=== PATIENT | male | born 1940 | race Two or more races ===

== ENCOUNTER 2017-10-24 13:36 | Emergency (ER) | payer OTHER ==
[2017-10-24 14:31] VITALS: BP 181/90
[2017-10-24] MEDS ORDERED: LIDOCAINE 5% (700 MG) TRANSDERMAL ADH..PATCH TP ONE (14:41)
--- NOTE | 2017-10-24 14:46 | ER Document Report ---
ED General - General Chief Complaint: High Blood Pressure Stated Complaint: BLOOD PRESSURE PROBLEMS Time Seen by Provider: 10/24/17 14:41 TRAVEL OUTSIDE OF THE [place] IN LAST 30 DAYS: No - Related Data Allergies/Adverse Reactions: No Known Allergies Allergy (Verified 10/24/17 14:27) Past Medical History - Social History Smoking Status: Never Smoker Chew tobacco use (# tins/day): No Frequency of alcohol use: Rare Drug Abuse: None Patient has suicidal ideation: No Patient has homicidal ideation: No - Past Medical History Cardiac Medical History: Reports: Hx Hypercholesterolemia, Hx Hypertension Renal/ Medical History: Denies: Hx Peritoneal Dialysis Past Surgical History: Reports: Hx Cholecystectomy Physical Exam - Vital signs Vitals: BP 181/90 H 10/24/17 14:31 Course - Vital Signs Vital signs: Temp Pulse Resp BP Pulse Ox 181/90 H 10/24/17 14:31 Discharge - Discharge Clinical Impression: Hypertension Qualifiers: Hypertension type: unspecified Qualified Code(s): I10 - Essential (primary) hypertension Back pain Qualifiers: Back pain location: low back pain Chronicity: acute Back pain laterality: left Sciatica presence: without sciatica Qualified Code(s): M54.5 - Low back pain Instructions: High Blood Pressure ([facility]), Low Back Pain ([facility]), Warm Packs ([facility]) , Ice Packs ([facility]) Additional Instructions: Your physical exam here in the ER does not reveal any critical pathology. Nuclear back pain is more muscle skeletal if the lidocaine patch along with Tylenol and Motrin to relieve her pain would recommend asking her pharmacist about obtaining [id number] lidocaine patches. Your blood pressure is still slightly elevated however did urgent criteria at this time on physical examination. Is very important when she returned to [place] that you follow -up with your primary care physician for further monitoring of your blood pressure medications and of your blood pressure. Return to ER if you develop any symptoms such as headaches chest pain abdominal pain nausea vomiting fevers chills
--- NOTE | 2017-10-24 16:27 | ER Document Report ---
ED General - General Chief Complaint: High Blood Pressure Stated Complaint: BLOOD PRESSURE PROBLEMS Time Seen by Provider: 10/24/17 14:41 TRAVEL OUTSIDE OF THE [place] IN LAST 30 DAYS: No - HPI Patient complains to provider of: Elevated blood pressure left back pain right thigh pain Notes: Patient coming in for evaluation of the above-stated symptoms. Patient recently traveled from [facility] to the [facility]. Patient states thigh pain and left lower back pain occurred prior to his departure of [place]. Patient coming in today for elevation of his blood pressure. Patient is on losartan states compliance with his losartan. States that blood pressure at pharmacies was elevated therefore was told to come to ER for further evaluation. Patient denies any head pain chest pain abdominal pain dizziness lightheadedness no other symptoms. Patient states that he feels fine while here in the ER. - Related Data Allergies/Adverse Reactions: No Known Allergies Allergy (Verified 10/24/17 14:27) Past Medical History - Social History Smoking Status: Never Smoker Chew tobacco use (# tins/day): No Frequency of alcohol use: Rare Drug Abuse: None Family History: Reviewed & Not Pertinent Patient has suicidal ideation: No Patient has homicidal ideation: No - Past Medical History Cardiac Medical History: Reports: Hx Hypercholesterolemia, Hx Hypertension Renal/ Medical History: Denies: Hx Peritoneal Dialysis Past Surgical History: Reports: Hx Cholecystectomy Review of Systems - Review of Systems Constitutional: Other - Elevated blood pressure right thigh pain left back pain EENT: No symptoms reported Cardiovascular: No symptoms reported Respiratory: No symptoms reported Gastrointestinal: No symptoms reported Genitourinary: No symptoms reported Male Genitourinary: No symptoms reported Musculoskeletal: No symptoms reported Skin: No symptoms reported Hematologic/Lymphatic: No symptoms reported Neurological/Psychological: No symptoms reported Physical Exam - Vital signs Vitals: BP 181/90 H 10/24/17 14:31 Interpretation: Hypertensive - General General appearance: Appears well, Alert - HEENT Head: Normocephalic, Atraumatic Eyes: Normal Pupils: PERRL - Respiratory Respiratory status: No respiratory distress Chest status: Nontender Breath sounds: Normal Chest palpation: Normal - Cardiovascular Rhythm: Regular Heart sounds: Normal auscultation Murmur: No - Abdominal Inspection: Normal Distension: No distension Bowel sounds: Normal Tenderness: Nontender Organomegaly: No organomegaly - Back Back: Normal, Tender - Tenderness palpation of the paraspinal region of the back related produces the patient's pain. - Extremities General upper extremity: Normal inspection - Examination of both legs does not reveal any calf tenderness no edema. Patient has had some very very mild tenderness to palpation of the right upper thigh however range of motion is intact patient ambulating without any limping normal gait., Nontender, Normal color, Normal ROM, Normal temperature General lower extremity: Normal inspection, Nontender, Normal color, Normal ROM , Normal temperature, Normal weight bearing. No: Adelita's sign - Neurological Neuro grossly intact: Yes Cognition: Normal Orientation: AAOx4 [place] Coma Scale Eye Opening: Spontaneous [place] Coma Scale Verbal: Oriented [place] Coma Scale Motor: Obeys Commands [place] Coma Scale Total: 15 Speech: Normal Motor strength normal: LUE, RUE, LLE, RLE Sensory: Normal - Psychological Associated symptoms: Normal affect, Normal mood - Skin Skin Temperature: Warm Skin Moisture: Dry Skin Color: Normal Course - Re-evaluation Re-evalutation: 10/24/17 16:46 The patient presents with low back pain without signs of spinal cord compression , cauda equina syndrome, infection, aneurysm, or other serious etiology. The patient is neurologically intact. Given the extremely low risk of these diagnoses further testing and evaluation for these possibilities does not appear to be indicated at this time. The patient has been instructed to return if the symptoms worsen or change in any way. Patient coming in for elevated blood pressures with a repeat showing 180/90. Patient has no other symptoms not symptomatic. Therefore patient will be discharged home recommend patient watch his diet while he is here in [place] avoid salty foods soda and continue his medications follow-up with his PCP once he returns back to [place] - Vital Signs Vital signs: Temp Pulse Resp BP Pulse Ox 181/90 H 10/24/17 14:31 Discharge - Discharge Clinical Impression: Hypertension Qualifiers: Hypertension type: unspecified Qualified Code(s): I10 - Essential (primary) hypertension Back pain Qualifiers: Back pain location: low back pain Chronicity: acute Back pain laterality: left Sciatica presence: without sciatica Qualified Code(s): M54.5 - Low back pain Instructions: High Blood Pressure ([facility]), Ice Packs ([facility]), Low Back Pain ([facility]), Warm Packs ([facility]) Additional Instructions: Your physical exam here in the ER does not reveal any critical pathology. Nuclear back pain is more muscle skeletal if the lidocaine patch along with Tylenol and Motrin to relieve her pain would recommend asking her pharmacist about obtaining [id number] lidocaine patches. Your blood pressure is still slightly elevated however did urgent criteria at this time on physical examination. Is very important when she returned to [place] that you follow -up with your primary care physician for further monitoring of your blood pressure medications and of your blood pressure. Return to ER if you develop any symptoms such as headaches chest pain abdominal pain nausea vomiting fevers chills
== END 2017-10-24 14:48 | disposition home or self-care (01) ==
LOC: ER 13:36
DX: I10 Essential (primary) hypertension (principal); Z79.899 Other long term (current) drug therapy; M54.5 Low back pain; M79.651 Pain in right thigh
CPT/HCPCS: 99283